=== PATIENT | female | born 1990 | race Caucasian/White ===

== ENCOUNTER 2022-06-30 02:15 | Outpatient (RCR) | payer BC, SELFPAY ==
[2022-06-30] VITALS (7 sets, daily range): BP systolic 100–123; BP diastolic 65–73; PULSE 54–87; RESP 16; TEMP 36.5–36.6; O2SAT 98–100
[2022-06-30 07:57] LABS: Abs Immature Grans 0.01 10^3/uL (0.0-0.06); Absolute Basophil Count 0.02 10^3/uL (0.0-0.2); Absolute Eosinophil Count 0.12 10^3/uL (0.0-0.7); Absolute Lymphocyte Count 3.22 10^3/uL (1.2-3.4); Absolute Monocyte Count 0.28 10^3/uL (0.1-0.8); Absolute Neutrophil Count 2.74 10^3/uL (1.2-6.7); Basophils % 0.3; Eosinophils % 1.9; HGB 13.4 g/dL (11.2-15.7); Immature Grans % 0.2; Lymphocytes % 50.4; MCH 33.1 pg (27.0-33.0); MCHC 33.5 % (32.0-36.0); MCV 99 fL (80-95); MPV 10.7 fL (8.0-11.0); Monocytes % 4.4; Neutrophils % 42.8; Platelet Count 202 10^3/uL (130-400); RBC 4.05 10^6/uL (3.93-5.22); RDW 12.1 % (11.7-14.6); RDW-SD 44.3 fL; WBC 6.39 10^3/uL (4.4-10.8)
[2022-06-30 08:08] LABS: Anion Gap 7.3 mmol/L (3-11); BUN 13 mg/dL (7-18); CO2 26.7 mmol/L (21.0-32.0); CREATININE 0.8 mg/dL (0.55-1.02); Calcium 8.7 mg/dL (8.5-10.1); Chloride 107 mmol/L (98-107); Estimated GFR 101.59 (mL/min/1.73m2); Glucose 103 mg/dL (74-106); Potassium 3.7 mmol/L (3.5-5.1); Sodium 141 mmol/L (136-145)
[2022-06-30 08:12] LABS: C-Reactive Protein < 0.05 mg/dL (0.0-0.3)
[2022-06-30] MEDS: inFLIXimab 600 MG in Normal Saline 250 ML 125 MG IVPB (08:17)
== END 2022-07-30 23:59 | disposition home or self-care (01) ==
LOC: INF 02:15
PROVIDERS: Visit Provider Family Medicine
DX: K50.90 Crohn's disease, unspecified, without complications (principal)
CPT/HCPCS: 80048; 96365; 96366; 96413; 96415; 85025; 86140; J1745

== ENCOUNTER 2022-08-20 01:19 | Outpatient (RCR) | payer BC, SELFPAY ==
[2022-07-31 00:14] VITALS: BP 123/72; PULSE 54; RESP 16; TEMP 36.5
[2022-08-20] VITALS (7 sets, daily range): BP systolic 101–110; BP diastolic 62–68; PULSE 61–77; RESP 14–17; TEMP 36.7–36.9; O2SAT 98–100
[2022-08-20] MEDS: inFLIXimab 600 MG in Normal Saline 250 ML 125 MG IVPB (08:30)
[2022-08-20] MEDS: Normal Saline Flush 10 ML SYR IVP (08:30)
== END 2022-08-29 23:59 | disposition home or self-care (01) ==
LOC: INF 01:19
PROVIDERS: Visit Provider Family Medicine
DX: K50.90 Crohn's disease, unspecified, without complications (principal)
CPT/HCPCS: 96365; 96366; 96413; 96415; J1745

== ENCOUNTER 2022-10-01 00:58 | Outpatient (RCR) | payer BC, SELFPAY ==
[2022-08-30 00:17] VITALS: BP 104/64; PULSE 66; RESP 16; TEMP 36.9
[2022-10-01] VITALS (7 sets, daily range): BP systolic 101–107; BP diastolic 62–67; PULSE 62–76; RESP 16; TEMP 36–37; O2SAT 98–99
[2022-10-01] MEDS: Normal Saline Flush 10 ML SYR IVP (07:09)
[2022-10-01] MEDS: inFLIXimab 600 MG in Normal Saline 250 ML 125 MG IVPB (08:03)
== END 2022-10-29 23:59 | disposition home or self-care (01) ==
LOC: INF 00:58
PROVIDERS: PCP Nurse Practitioner Family; Visit Provider Family Medicine
DX: K50.90 Crohn's disease, unspecified, without complications (principal)
CPT/HCPCS: 96365; 96366; 96413; 96415; J1745

== ENCOUNTER 2022-10-06 13:47 | Outpatient (REF) | payer BC, SELFPAY | END 2022-10-06 13:48 | disposition home or self-care (01) | LOC: LBN 13:47 | PROVIDERS: PCP Nurse Practitioner Family; Visit Provider Nurse Practitioner Family | DX: N89.8 Other specified noninflammatory disorders of vagina (principal) | CPT/HCPCS: 87480; 87510; 87660 ==

== ENCOUNTER 2022-11-12 01:31 | Outpatient (RCR) | payer BC, SELFPAY ==
[2022-10-30 00:11] VITALS: BP 107/67; PULSE 65; RESP 16; TEMP 37
[2022-11-12] VITALS (7 sets, daily range): BP systolic 94–112; BP diastolic 62–67; PULSE 61–73; RESP 16; TEMP 36.8–37.3; O2SAT 98–100
[2022-11-12] MEDS: Normal Saline Flush 10 ML SYR IVP (07:24)
[2022-11-12] MEDS: inFLIXimab 600 MG in Normal Saline 250 ML 125 MG IVPB (08:13)
== END 2022-11-29 23:59 | disposition home or self-care (01) ==
LOC: INF 01:31
PROVIDERS: PCP Nurse Practitioner Family; Visit Provider Family Medicine
DX: K50.90 Crohn's disease, unspecified, without complications (principal)
CPT/HCPCS: 96365; 96366; 96413; 96415; J1745

== ENCOUNTER 2022-12-22 03:59 | Outpatient (RCR) | payer BC, SELFPAY ==
[2022-11-30 00:13] VITALS: BP 94/64; PULSE 72; RESP 16; TEMP 37.2
[2022-12-22] VITALS (7 sets, daily range): BP systolic 99–109; BP diastolic 66–71; PULSE 62–76; RESP 16–98; TEMP 37.2–37.6; O2SAT 99–100
[2022-12-22] MEDS: inFLIXimab 600 MG in Normal Saline 250 ML 125 MG IVPB (08:34)
[2022-12-22] MEDS: Normal Saline Flush 10 ML SYR IVP (08:34)
[2022-12-22 08:38] LABS: Abs Immature Grans 0.01 10^3/uL (0.0-0.06); Absolute Basophil Count 0.04 10^3/uL (0.0-0.2); Absolute Eosinophil Count 0.16 10^3/uL (0.0-0.7); Absolute Lymphocyte Count 2.74 10^3/uL (1.2-3.4); Absolute Monocyte Count 0.29 10^3/uL (0.1-0.8); Absolute Neutrophil Count 3.22 10^3/uL (1.2-6.7); Basophils % 0.6; Eosinophils % 2.5; HCT 38.9 % (36.0-46.0); HGB 13.1 g/dL (11.2-15.7); Immature Grans % 0.2; Lymphocytes % 42.4; MCH 33.2 pg (27.0-33.0); MCHC 33.7 % (32.0-36.0); MCV 99 fL (80-95); MPV 10.6 fL (8.0-11.0); Monocytes % 4.5; Neutrophils % 49.8; Platelet Count 218 10^3/uL (130-400); RBC 3.94 10^6/uL (3.93-5.22); RDW 11.7 % (11.7-14.6); RDW-SD 42.6 fL; WBC 6.46 10^3/uL (4.4-10.8)
[2022-12-22 08:41] LABS: ESR < 1 mm/hr (0-20)
[2022-12-22 09:26] LABS: Vitamin D 25 Total 27.2 ng/mL (30-100)
[2022-12-22 09:31] LABS: ALT 19 U/L (14-59); AST 10 U/L (15-37); Albumin 3.8 g/dL (3.4-5.0); Alkaline Phosphatase 50 U/L (46-116); Anion Gap 6.6 mmol/L (3-11); BUN 12 mg/dL (7-18); Bilirubin, Total 0.8 mg/dL (0.2-1.0); CO2 29.4 mmol/L (21.0-32.0); CREATININE 0.9 mg/dL (0.55-1.02); Chloride 102 mmol/L (98-107); Estimated GFR 87.65 (mL/min/1.73m2); Glucose 86 mg/dL (74-106); Potassium 3.6 mmol/L (3.5-5.1); Sodium 138 mmol/L (136-145); Total Protein 7.2 g/dL (6.4-8.2); Vitamin B12 334 pg/mL (193-986)
[2022-12-22 10:37] LABS: C-Reactive Protein < 0.05 mg/dL (0.0-0.3)
[2022-12-23 09:52] LABS: Hepatitis B Surface Ag Negative (Negative)
[2022-12-23 10:03] LABS: HBs Antibody, Quant 132.9 mIU/mL (See Note); Hepatitis B Surface Ab Positive (See Note)
[2022-12-23 10:57] LABS: Hepatitis C Ab w Rflx HCV PCR Negative (Negative)
[2022-12-23 11:04] LABS: Hep B Core Antibody Negative (Negative)
[2022-12-24 13:35] LABS: TB Interpretation Negative (Negative); TB1 Ag minus Nil 0.01 IU/ml; TB2 Ag minus Nil 0.01 IU/mL
[2022-12-29 00:24] LABS: Infliximab 23 mcg/mL (<=5.0)
== END 2022-12-30 23:59 | disposition home or self-care (01) ==
LOC: INF 03:59
PROVIDERS: Nurse Practitioner Adult Health; PCP Nurse Practitioner Family; Visit Provider Family Medicine
DX: K51.00 Ulcerative (chronic) pancolitis without complications (principal)
CPT/HCPCS: 36415; 80053; 82306; 82397; 85652; 86704; 86706; 86803; 87340; 96365; 96366; 96413; 96415; 82607; 85025; 86140; 86480; J1745

== ENCOUNTER 2022-12-22 16:37 | Outpatient (REF) | payer BC, SELFPAY ==
[2022-12-25 17:41] LABS: Calprotectin <50.0 mcg/g
== END 2022-12-22 16:38 | disposition home or self-care (01) ==
LOC: LBN 16:37
PROVIDERS: PCP Nurse Practitioner Family; Visit Provider Nurse Practitioner Adult Health
DX: K51.00 Ulcerative (chronic) pancolitis without complications (principal)
CPT/HCPCS: 83993

== ENCOUNTER 2023-01-31 08:43 | Outpatient (REF) | payer BC, SELFPAY ==
--- NOTE | 2023-01-31 08:20 | PAPFT_PTH ---
PATIENT: Da Hernandez LOC: [facility] U#:[id number] AGE/SX: 32/F ROOM: RE01/31/[address]: Marie Pradhan NP : 1990 BED: DIS: 01/31/2023 SPEC #: [id number] RECD: 01/31/23 11:51 STATUS: MICHELLE REThomas #: [id number] NICOLASA: 01/31/23 08:[address]: Marie Pradhan NP DEPT: [facility] Cytology RECD BY: Oralia Leon ENTERED: 01/31/23 11:51 SP TYPE: PAPFT OTHR DR: Robert Mcpherson DNP Tissues: 1 - CX/ENDOCX FOR PAP SMEARS Procedures: PAP THIN PREP/[facility] Screening Comments: [id number]
== END 2023-01-31 08:44 | disposition home or self-care (01) ==
LOC: LBN 08:43
PROVIDERS: PCP Nurse Practitioner Family; Visit Provider Nurse Practitioner Women's Health
DX: Z12.4 Encounter for screening for malignant neoplasm of cervix (principal)
CPT/HCPCS: 88142

== ENCOUNTER 2023-02-04 01:28 | Outpatient (RCR) | payer BC, SELFPAY ==
[2022-12-31 00:19] VITALS: BP 105/67; PULSE 66; RESP 98; TEMP 37.6
[2023-02-04 07:35] VITALS: BP 105/66; PULSE 83; RESP 16; TEMP 37.1; O2SAT 100
[2023-02-04] MEDS: Normal Saline Flush 10 ML SYR IVP (07:36)
[2023-02-04 08:40] VITALS: BP 98/63; PULSE 67; RESP 16; TEMP 37.2; O2SAT 98
[2023-02-04 09:25] VITALS: BP 114/75; PULSE 69; RESP 16; TEMP 35.9; O2SAT 100
== END 2023-03-01 23:59 | disposition home or self-care (01) ==
LOC: INF 01:28
PROVIDERS: PCP Nurse Practitioner Family; Visit Provider Family Medicine
DX: K51.90 Ulcerative colitis, unspecified, without complications (principal)
CPT/HCPCS: 96365; 96413

== ENCOUNTER 2023-03-18 01:51 | Outpatient (RCR) | payer BC, SELFPAY ==
[2023-03-02 00:14] VITALS: BP 105/67; PULSE 66; RESP 98; TEMP 37.6
[2023-03-18 07:34] VITALS: BP 101/59; PULSE 79; RESP 18; TEMP 34; O2SAT 99
[2023-03-18] MEDS: Normal Saline Flush 10 ML SYR IVP (08:39)
== END 2023-03-31 23:59 | disposition home or self-care (01) ==
LOC: INF 01:51
PROVIDERS: PCP Nurse Practitioner Family; Visit Provider Family Medicine
DX: K51.00 Ulcerative (chronic) pancolitis without complications
CPT/HCPCS: 96365; 96366; 96413; 96415

== ENCOUNTER 2023-04-29 02:43 | Outpatient (RCR) | payer BC, SELFPAY ==
[2023-04-01 00:08] VITALS: BP 105/67; PULSE 66; RESP 98; TEMP 37.6
[2023-04-29 07:45] VITALS: BP 99/63; PULSE 77; RESP 18; TEMP 37.2; O2SAT 98
[2023-04-29] MEDS: Normal Saline Flush 10 ML SYR IVP (08:22)
[2023-04-29 09:30] VITALS: BP 116/72; PULSE 776; RESP 18; TEMP 37.2; O2SAT 98
== END 2023-05-01 23:59 | disposition home or self-care (01) ==
LOC: INF 02:43
PROVIDERS: PCP Nurse Practitioner Family; Visit Provider Family Medicine
DX: K51.00 Ulcerative (chronic) pancolitis without complications
CPT/HCPCS: 96365; 96413; 96415

== ENCOUNTER 2023-06-16 03:58 | Outpatient (RCR) | payer BC, SELFPAY ==
[2023-05-02 00:04] VITALS: BP 105/67; PULSE 66; RESP 98; TEMP 37.6
[2023-06-16 08:00] VITALS: BP 115/73; PULSE 63; RESP 17; TEMP 36.7; O2SAT 99
[2023-06-16] MEDS: Normal Saline Flush 10 ML SYR IVP (08:26)
[2023-06-16 08:35] LABS: HCT 43.1 % (36.0-46.0); HGB 14.5 g/dL (11.2-15.7); MCH 32.8 pg (27.0-33.0); MCHC 33.6 % (32.0-36.0); MCV 98 fL (80-95); MPV 10.7 fL (8.0-11.0); Platelet Count 236 10^3/uL (130-400); RBC 4.42 10^6/uL (3.93-5.22); RDW 12.1 % (11.7-14.6); RDW-SD 43.9 fL; WBC 6.39 10^3/uL (4.4-10.8)
[2023-06-16 08:37] LABS: ESR 5 mm/hr (0-20)
[2023-06-16 09:07] LABS: ALT 23 U/L (14-59); AST 13 U/L (15-37); Albumin 3.8 g/dL (3.4-5.0); Alkaline Phosphatase 53 U/L (46-116); Bilirubin, Direct 0.1 mg/dL (0.0-0.2); Bilirubin, Total 0.5 mg/dL (0.2-1.0); Total Protein 7.3 g/dL (6.4-8.2)
[2023-06-16 09:09] LABS: C-Reactive Protein < 0.50 mg/dL (<or=0.5)
[2023-06-16 09:48] LABS: Vitamin D 25 Total 28.7 ng/mL (30-100)
[2023-06-20 20:32] LABS: Infliximab 20 mcg/mL (<=5.0)
== END 2023-06-30 23:59 | disposition home or self-care (01) ==
LOC: INF 03:58
PROVIDERS: Internal Medicine; Nurse Practitioner Adult Health; PCP Nurse Practitioner Family; Visit Provider Family Medicine
DX: K51.00 Ulcerative (chronic) pancolitis without complications (principal); E61.1 Iron deficiency; E53.8 Deficiency of other specified B group vitamins; E55.9 Vitamin D deficiency, unspecified
CPT/HCPCS: 36415; 80076; 82306; 82397; 85027; 85652; 96365; 96413; 86140; Q5103

== ENCOUNTER 2023-08-12 00:42 | Outpatient (RCR) | payer BC, SELFPAY ==
[2023-07-01 00:14] VITALS: BP 105/67; PULSE 66; RESP 98; TEMP 37.6
[2023-08-12] MEDS: Normal Saline Flush 10 ML SYR IVP (07:33)
[2023-08-12] MEDS: INFLIXIMAB DYYB IVPB (08:13)
[2023-08-12] MEDS: NORMAL SALINE IVPB (08:13)
[2023-08-12 08:15] VITALS: BP 97/62; PULSE 69; RESP 16; TEMP 36.5; O2SAT 98
[2023-08-12 08:49] VITALS: BP 116/70; PULSE 69; RESP 16; TEMP 36.5; O2SAT 100
[2023-08-12 09:19] VITALS: BP 111/69; PULSE 83; RESP 16; TEMP 36.5; O2SAT 100
== END 2023-08-30 23:59 | disposition home or self-care (01) ==
LOC: INF 00:42
PROVIDERS: PCP Nurse Practitioner Family; Visit Provider Family Medicine
DX: K51.00 Ulcerative (chronic) pancolitis without complications (principal)
CPT/HCPCS: 96365; Q5103

== ENCOUNTER 2024-02-06 02:21 | Outpatient (CLI) | payer BC, SELFPAY ==
[2024-02-06 16:21] LABS: Abs Immature Grans 0.01 10^3/uL (0.0-0.06); Absolute Basophil Count 0.06 10^3/uL (0.0-0.2); Absolute Eosinophil Count 0.15 10^3/uL (0.0-0.7); Absolute Lymphocyte Count 3.47 10^3/uL (1.2-3.4); Absolute Monocyte Count 0.43 10^3/uL (0.1-0.8); Absolute Neutrophil Count 3.67 10^3/uL (1.2-6.7); Basophils % 0.8 %; Eosinophils % 1.9 %; HCT 41.9 % (36.0-46.0); Immature Grans % 0.1 %; Lymphocytes % 44.5 %; MCH 33.5 pg (27.0-33.0); MCHC 33.4 % (32.0-36.0); MCV 100 fL (80-95); Monocytes % 5.5 %; Neutrophils % 47.2 %; Platelet Count 221 10^3/uL (130-400); RBC 4.18 10^6/uL (3.93-5.22); RDW-SD 44.3 fL; WBC 7.79 10^3/uL (4.4-10.8)
[2024-02-06 16:23] LABS: ESR 3 mm/hr (0-20)
[2024-02-06 18:26] LABS: ALT 26 U/L (14-59); AST 14 U/L (15-37); Albumin 4.1 g/dL (3.4-5.0); Alkaline Phosphatase 53 U/L (46-116); Anion Gap 7.8 mmol/L (3-11); BUN 11 mg/dL (7-18); Bilirubin, Direct 0.2 mg/dL (0.0-0.2); Bilirubin, Total 0.48 mg/dL (0.2-1.0); CO2 28.2 mmol/L (21.0-32.0); CREATININE 0.8 mg/dL (0.55-1.02); Calcium 9.4 mg/dL (8.5-10.1); Chloride 105 mmol/L (98-107); Estimated GFR 100.33 (mL/min/1.73m2); Glucose 85 mg/dL (74-106); Potassium 4.5 mmol/L (3.5-5.1); Sodium 141 mmol/L (136-145); Total Protein 7.9 g/dL (6.4-8.2)
[2024-02-06 18:28] LABS: C-Reactive Protein < 0.50 mg/dL (<or=0.5)
[2024-02-11 00:12] LABS: Infliximab 15 mcg/mL (<=5.0)
== END 2024-02-06 02:22 | disposition home or self-care (01) ==
PROVIDERS: PCP Nurse Practitioner Family; Visit Provider Nurse Practitioner Adult Health
DX: K51.00 Ulcerative (chronic) pancolitis without complications (principal)
CPT/HCPCS: 36415; 80053; 80076; 82306; 82397; 85652; 85025; 86140

== ENCOUNTER 2024-02-06 15:34 | Outpatient (REF) | payer BC, SELFPAY ==
--- NOTE | 2024-02-06 15:20 | PAPFT_PTH ---
PATIENT: Da Hernandez LOC: [facility] U#:[id number] AGE/SX: 33/F ROOM: RE02/06/[address]: Marie Pradhan NP : 1990 BED: DIS: 02/06/2024 SPEC #: [id number] RECD: 02/06/24 17:36 STATUS: MICHELLE REQ #: [id number] NICOLASA: 02/06/24 15:[address]: Marie Pradhan NP DEPT: [facility] Cytology RECD BY: Oralia Leon ENTERED: 02/06/24 17:36 SP TYPE: PAPFT OTHR DR: Robert Mcpherson DNP Tissues: 1 - CX/ENDOCX FOR PAP SMEARS Procedures: PAP THIN PREP/[facility] Screening HPV DNA PROBE Comments: [id number] (HPV 16 & 18/45)
[2024-02-10 19:39] LABS: Calprotectin <50.0 mcg/g
== END 2024-02-06 15:35 | disposition home or self-care (01) ==
LOC: LBN 15:34
PROVIDERS: PCP Nurse Practitioner Family; Visit Provider Nurse Practitioner Women's Health
DX: K51.00 Ulcerative (chronic) pancolitis without complications (principal); Z12.4 Encounter for screening for malignant neoplasm of cervix
CPT/HCPCS: 88142; 83993; 87624

== ENCOUNTER 2024-07-25 02:19 | Outpatient (CLI) | payer BC, SELFPAY ==
[2024-07-25 16:42] LABS: ESR 4 mm/hr (0-20)
[2024-07-25 17:44] LABS: ALT 35 U/L (14-59); AST 18 U/L (15-37); Albumin 3.8 g/dL (3.4-5.0); Alkaline Phosphatase 80 U/L (46-116); Anion Gap 9.1 mmol/L (3-11); BUN 18 mg/dL (7-18); Bilirubin, Total 0.3 mg/dL (0.2-1.0); CO2 29.9 mmol/L (21.0-32.0); CREATININE 0.8 mg/dL (0.55-1.02); Chloride 103 mmol/L (98-107); Estimated GFR 100.33 (mL/min/1.73m2); Glucose 90 mg/dL (74-106); Potassium 3.9 mmol/L (3.5-5.1); Sodium 142 mmol/L (136-145); Total Protein 7.9 g/dL (6.4-8.2); Vitamin D 25 Total 22 ng/mL (30-100)
[2024-08-02 21:11] LABS: Infliximab 9.8 mcg/mL (<=5.0)
== END 2024-07-25 02:20 | disposition home or self-care (01) ==
LOC: LBO 02:19
PROVIDERS: PCP Nurse Practitioner Family; Visit Provider Nurse Practitioner Adult Health
DX: K51.00 Ulcerative (chronic) pancolitis without complications (principal)
CPT/HCPCS: 36415; 80053; 82306; 82397; 85652

== ENCOUNTER 2024-09-20 03:28 | Outpatient (CLI) | payer BC, SELFPAY ==
[2024-09-20 17:09] LABS: Abs Immature Grans 0.02 10^3/uL (0.0-0.06); Absolute Basophil Count 0.07 10^3/uL (0.0-0.2); Absolute Eosinophil Count 0.29 10^3/uL (0.0-0.7); Absolute Lymphocyte Count 3.83 10^3/uL (1.2-3.4); Absolute Neutrophil Count 4.22 10^3/uL (1.2-6.7); Basophils % 0.8 %; Eosinophils % 3.2 %; HCT 44.1 % (36.0-46.0); HGB 14.8 g/dL (11.2-15.7); Immature Grans % 0.2 %; Lymphocytes % 42.9 %; MCH 33.2 pg (27.0-33.0); MCHC 33.6 % (32.0-36.0); MCV 99 fL (80-95); MPV 10.5 fL (8.0-11.0); Monocytes % 5.6 %; Neutrophils % 47.3 %; Platelet Count 185 10^3/uL (130-400); RBC 4.46 10^6/uL (3.93-5.22); RDW 12.6 % (11.7-14.6); RDW-SD 45.7 fL; WBC 8.93 10^3/uL (4.4-10.8)
[2024-09-20 17:12] LABS: ESR 4 mm/hr (0-20)
[2024-09-20 17:59] LABS: ALT 29 U/L (14-59); AST 15 U/L (15-37); Albumin 3.9 g/dL (3.4-5.0); Alkaline Phosphatase 83 U/L (46-116); Bilirubin, Direct 0.1 mg/dL (0.0-0.2); Bilirubin, Total 0.5 mg/dL (0.2-1.0); C-Reactive Protein < 0.50 mg/dL (<or=0.5); Total Protein 7.4 g/dL (6.4-8.2)
== END 2024-09-20 03:29 | disposition home or self-care (01) ==
PROVIDERS: PCP Nurse Practitioner Family; Visit Provider Nurse Practitioner Adult Health
DX: K51.00 Ulcerative (chronic) pancolitis without complications (principal)
CPT/HCPCS: 36415; 80053; 80076; 82306; 82397; 85652; 85025; 86140

== ENCOUNTER 2025-01-08 11:49 | Outpatient (CLI) | payer BC, SELFPAY ==
[2025-01-08 16:28] LABS: Abs Immature Grans 0.02 10^3/uL (0.0-0.06); HCT 40.4 % (36.0-46.0); HGB 13.6 g/dL (11.2-15.7); Immature Grans % 0.2 %; MCH 32.9 pg (27.0-33.0); MCHC 33.7 % (32.0-36.0); MCV 98 fL (80-95); MPV 10.1 fL (8.0-11.0); Platelet Count 224 10^3/uL (130-400); RBC 4.14 10^6/uL (3.93-5.22); RDW 12.0 % (11.7-14.6); RDW-SD 43.1 fL; WBC 10.73 10^3/uL (4.4-10.8)
[2025-01-08 17:31] LABS: ALT 38 U/L (14-59); AST 19 U/L (15-37); Albumin 4.1 g/dL (3.4-5.0); Alkaline Phosphatase 97 U/L (46-116); Bilirubin, Direct 0.1 mg/dL (0.0-0.2); Bilirubin, Total 0.4 mg/dL (0.2-1.0); Total Protein 7.6 g/dL (6.4-8.2)
[2025-01-08 17:32] LABS: C-Reactive Protein < 0.50 mg/dL (<or=0.5)
== END 2025-01-08 11:50 | disposition home or self-care (01) ==
PROVIDERS: PCP Nurse Practitioner Family; Visit Provider Nurse Practitioner Adult Health
DX: K51.00 Ulcerative (chronic) pancolitis without complications (principal)
CPT/HCPCS: 36415; 80076; 85025; 86140

== ENCOUNTER 2025-02-06 15:57 | Outpatient (CLI) | payer BC, SELFPAY ==
[2025-02-06 17:44] LABS: TSH (W/Ref FT4) 2.22 uIU/mL (0.36-3.74)
[2025-02-07 19:26] LABS: FSH 7.7 mIU/mL (See Note)
[2025-02-15 19:31] LABS: Testosterone, Free 3.7 pg/mL (0.1-6.4)
== END 2025-02-06 15:58 | disposition home or self-care (01) ==
LOC: LBO 15:57
PROVIDERS: PCP Nurse Practitioner Family; Visit Provider Nurse Practitioner Women's Health
DX: Z31.69 Encounter for other general counseling and advice on procreation (principal)
CPT/HCPCS: 36415; 84402; 84403; 82670; 83001; 83520; 84443

== ENCOUNTER 2025-02-06 16:00 | Outpatient (REF) | payer BC, SELFPAY ==
--- NOTE | 2025-02-06 15:40 | PAPFT_PTH ---
PATIENT: Da Hernandez LOC: [facility] U#:[id number] AGE/SX: 34/F ROOM: RE02/06/[address]: Marie Pradhan NP : 1990 BED: DIS: 02/06/2025 SPEC #: [id number] RECD: 02/06/25 17:44 STATUS: MICHELLE REThomas #: [id number] NICOLASA: 02/06/25 15:[address]: Marie Pradhan NP DEPT: [facility] Cytology RECD BY: Oralia Leon ENTERED: 02/06/25 17:45 SP TYPE: PAPFT OTHR DR: Robert Mcpherson DNP Tissues: 1 - CX/ENDOCX FOR PAP SMEARS Procedures: PAP THIN PREP/[facility] Screening HPV DNA PROBE Comments: [id number] (HPV 16 & 18/45)
== END 2025-02-06 16:01 | disposition home or self-care (01) ==
LOC: LBN 16:00
PROVIDERS: PCP Nurse Practitioner Family; Visit Provider Nurse Practitioner Women's Health
DX: Z12.4 Encounter for screening for malignant neoplasm of cervix (principal)
CPT/HCPCS: 88142; 87624